=== PATIENT | male | born 1965 | race Caucasian/White ===

== ENCOUNTER 2019-12-20 11:43 | Emergency (ER) | payer OTHER, MEDICAID ==
[~2019-12-20] VITALS: Ht 152.4 cm; Wt 63.5 kg
[2019-12-20 11:59] VITALS: BP_SYST 158
--- NOTE | 2019-12-20 11:59 | NUR ---
Patient to ER bed 08 to gown for evaluation. Side rails up.
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
--- NOTE | 2019-12-20 12:00 | NUR ---
Accucheck done at bedside, 217. MD aware.
--- NOTE | 2019-12-20 12:23 | NUR ---
ER Dr. Casey at bedside examining patient.
[2019-12-20] MEDS ORDERED: IBUPROFEN 600 MG TABLET PO ONE (12:30)
[2019-12-20 12:38] VITALS: BP_SYST 154
== END 2019-12-20 12:38 | disposition home or self-care (01) ==
LOC: SED 11:43
DX: M54.5 Low back pain (principal); V49.49XA Driver injured in collision with other motor vehicles in traffic accident, initial encounter; Y93.89 Activity, other specified; Y92.413 State road as the place of occurrence of the external cause; Y99.8 Other external cause status
CPT/HCPCS: 82962; 99283